=== PATIENT | female | born 1940 | race Caucasian/White ===

== ENCOUNTER 2019-02-01 07:44 | Inpatient (IN) | payer OTHER ==
[~2019-02-01] VITALS: Ht 167.6 cm; Wt 54.4 kg
[~2019-02-01 07:44] MED LIST: PREDNISONE10 MG
[2019-02-01] MEDS ORDERED: [UNRECOGNIZED DRUG - CODE] (08:39)
[2019-02-01] MEDS ORDERED: ULTRACET (08:39)
[2019-02-01] MEDS ORDERED: CENTRUM SILVER1 EAC3 (08:40)
[2019-02-07] MEDS ORDERED: VITAMIN D400 UNI2 PO (08:00)
[2019-02-10] MEDS ORDERED: SENOKOT-S TABL1 EACH PO (09:11)
[2019-02-10] MEDS ORDERED: METRONIDAZOLE500 MG PO (09:11)
[2019-02-10] MEDS ORDERED: PEPCID40 MG PO (09:11)
[2019-02-10] MEDS ORDERED: CIPRO500 MG PO (09:11)
== END 2019-02-10 12:18 | DRG 378 ==
LOC: ER 07:44 → ICU-2 17:53 → MEDI 02-04 18:38
PROVIDERS: ADMIT Internal Medicine
PROC: 30233N1 Transfusion of Nonautologous Red Blood Cells into Peripheral Vein, Percutaneous Approach (ICD-10-PCS; 2019-02-01)
PROC: 4A033R1 Measurement of Arterial Saturation, Peripheral, Percutaneous Approach (ICD-10-PCS; 2019-02-01)
PROC: 0T9B70Z Drainage of Bladder with Drainage Device, Via Natural or Artificial Opening (ICD-10-PCS; 2019-02-01)
PROC: 0DJD8ZZ Inspection of Lower Intestinal Tract, Via Natural or Artificial Opening Endoscopic (ICD-10-PCS; principal; 2019-02-03)
PROC: 4A12X4Z Monitoring of Cardiac Electrical Activity, External Approach (ICD-10-PCS; 2019-02-04)
PROC: BW21Y0Z Computerized Tomography (CT Scan) of Abdomen and Pelvis using Other Contrast, Unenhanced and Enhanced (ICD-10-PCS; 2019-02-08)
DX: K57.31 Diverticulosis of large intestine without perforation or abscess with bleeding (principal); D62 Acute posthemorrhagic anemia; E27.49 Other adrenocortical insufficiency; I95.89 Other hypotension; Z88.6 Allergy status to analgesic agent; K64.1 Second degree hemorrhoids; D72.828 Other elevated white blood cell count; M54.5 Low back pain; N39.8 Other specified disorders of urinary system

== ENCOUNTER → 2022-02-07 | Emergency (ER) | payer OTHER ==
[~2022-02-07] MED LIST changes: +CENTRUM SILVER1 EAC3; +CIPRO500 MG PO; +METRONIDAZOLE500 MG PO; +PEPCID40 MG PO; +PROTONIX40 MG PO; +SENOKOT-S TABL1 EACH PO; +ULTRACET; +VITAMIN D400 UNI2 PO; +[UNRECOGNIZED DRUG - CODE]
== END | disposition home or self-care (01) ==
LOC: ER 17:35
DX: M54.59 Other low back pain (principal); M85.88 Other specified disorders of bone density and structure, other site; N32.89 Other specified disorders of bladder; Z20.822 Contact with and (suspected) exposure to COVID-19; Z88.8 Allergy status to other drugs, medicaments and biological substances